=== PATIENT | female | born 1985 | race Caucasian/White ===

== ENCOUNTER 2016-02-22 11:37 | Emergency (ER) | payer MEDICAID, OTHER ==
[~2016-02-22] VITALS: Ht 157.5 cm; Wt 53.6 kg
[~2016-02-22 11:37] MED LIST: ETON1IMP I-DERMAL; PREN0.01 PO
[2016-02-22 11:41] VITALS: BP 142/88; PULSE 87; RESP 15; TEMP 98.1; O2SAT 98
--- NOTE | 2016-02-22 13:40 | PD ---
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 She describes it as heavy and with clots. Patient does report this happened one time as a teenager which resulted in a blood transfusion. Patient was seen and evaluated at her primary care provider's office Dr. Dumont on the third for the same complaint. Patient had ultrasound ordered outpatient. Urine in the office was negative on February 20, 2016. Patient reports persistent bleeding and states that she will not be able to get her ultrasound for at least 2 weeks. Denies any fever or chills. No nausea or vomiting. No bowel changes. Patient has had no difficulty urinating or urinary symptoms. Patient does have Implanon control. She has no other symptoms to report. History Social History Alcohol Use: No Tobacco Use: No Allergies-Medications (Allergen,Severity, Reaction): Coded Allergies: No Known Allergies (Unverified , 02/20/16) Reported Meds & Prescriptions Reported Meds & Active Scripts Active Nexplanon Implant (Etonogestrel Implant) 68 Mg Imp 68 Mg I-DERMAL ONCE Reported Vitamins 1 Tab PO DAILY Review of Systems Except as stated in HPI: all other systems reviewed are Neg Physical Exam Narrative GENERAL: Well-nourished female patient, in no acute distress SKIN: Warm and dry. HEAD: Atraumatic. Normocephalic. EYES: Pupils equal and round. No scleral icterus. No injection or drainage. ENT: No nasal bleeding or discharge. Mucous membranes pink and moist. NECK: Trachea midline. No JVD. CARDIOVASCULAR: Regular rate and rhythm. No murmur appreciated. RESPIRATORY: No accessory muscle use. Clear to auscultation. Breath sounds equal bilaterally. GASTROINTESTINAL: Abdomen soft, nondistended. Slight tenderness lower abdomen. No guarding or rebound tenderness. Hepatic and splenic margins not palpable. MUSCULOSKELETAL: No obvious deformities. No clubbing. No cyanosis. No edema. NEUROLOGICAL: Awake and alert. No obvious cranial nerve deficits. Motor grossly within normal limits. Normal speech. PSYCHIATRIC: Appropriate mood and affect; insight and judgment normal. Data Data Last Documented VS Vital Signs Date Time Temp Pulse Resp B/P Pulse Ox O2 Delivery O2 Flow Rate FiO2 02/22/16 11:41 98.1 87 15 142/88 98 Orders Complete Blood Count With Diff (02/22/16 13:41) Urinalysis - C+S If Indicated (02/22/16 13:41) Us Pelvis Comp W Doppler (02/22/16 ) Labs Laboratory Tests Test 02/22/16 15:15 White Blood Count 6.9 TH/MM3 Red Blood Count 4.36 MIL/MM3 Hemoglobin 13.0 GM/DL Hematocrit 38.4 % Mean Corpuscular Volume 88.1 FL Mean Corpuscular Hemoglobin 29.8 PG Mean Corpuscular Hemoglobin 33.9 % Concent Red Cell Distribution Width 13.1 % Platelet Count 185 TH/MM3 Mean Platelet Volume 9.9 FL Neutrophils (%) (Auto) 62.4 % Lymphocytes (%) (Auto) 29.1 % Monocytes (%) (Auto) 7.4 % Eosinophils (%) (Auto) 0.6 % Basophils (%) (Auto) 0.5 % Neutrophils # (Auto) 4.3 TH/MM3 Lymphocytes # (Auto) 2.0 TH/MM3 Monocytes # (Auto) 0.5 TH/MM3 Eosinophils # (Auto) 0.0 TH/MM3 Basophils # (Auto) 0.0 TH/MM3 CBC Comment DIFF FINAL Differential Comment MDM Medical Decision Making Medical Screen Exam Complete: Yes Emergency Medical Condition: Yes Medical Record Reviewed: Yes Differential Diagnosis Menorrhagia versus dysmenorrhea versus hemorrhagic cyst versus UTI versus menses Narrative Course 30 year-old female presents to emergency department for evaluation of vaginal bleeding. Patient appears without distress. Workup was initiated in triage. Once a medical bed becomes available, patient will be transferred and disposition made by the provider that pod. Diagnosis Primary Impression: Vaginal bleeding Clara Gagnon Feb 22, 2016 13:40
[2016-02-22 15:41] LABS: AUTOMATED NEUTROPHIL # 4.3 TH/MM3 (1.8-7.7); BASOPHIL % 0.5 % (0.0-2.0); EOSINOPHIL % 0.6 % (0.0-4.0); HEMATOCRIT 38.4 % (35.0-46.0); HEMO FLAGS DIFF FINAL; LYMPH % 29.1 % (9.0-44.0); MEAN CELL VOLUME 88.1 FL (80.0-100.0); MEAN CORPUSCULAR HEMOGLOBIN 29.8 PG (27.0-34.0); MEAN CORPUSCULAR HGB CONC 33.9 % (32.0-36.0); MONO % 7.4 % (0.0-8.0); NEUT % 62.4 % (16.0-70.0); PLATELET COUNT 185 TH/MM3 (150-450); RED BLOOD COUNT 4.36 MIL/MM3 (4.00-5.30); RED CELL DISTRIBUTION WIDTH 13.1 % (11.6-17.2); WHITE BLOOD COUNT 6.9 TH/MM3 (4.0-11.0)
--- NOTE | 2016-02-22 16:46 | RADRPT ---
EXAM DATE/TIME: 02/22/2016 14:35 [facility] COMPARISON: No previous studies available for comparison. INDICATIONS : Heavy vaginal bleeding. MEDICAL HISTORY : Heavy bleeding. Ovarian cysts. SURGICAL HISTORY : Blood transfusion. ENCOUNTER: Initial ACUITY: 1 month PAIN SCORE: 4/10 LOCATION: Bilateral pelvis MEASUREMENTS: UTERUS: 8.0 x 3.9 x 4.5 cm ENDOMETRIAL STRIPE: 8 mm RIGHT OVARY: 2.7 x 1.6 x 2.6 cm LEFT OVARY: 4.4 x 2.2 x 2.9 cm FINDINGS: No focal abnormalities identified in the uterus. Positive flow to both ovaries. Cystic change in both ovaries measuring up to 2.5 cm on the left and 1.2 cm on the right. Trace free fluid posterior to le ft ovary. CONCLUSION: 1. Small ovarian cysts. Positive blood flow to both ovaries. Trace free fluid. Uterus unremarkable so nographically. Kosta Woodall MD on February 22, 2016 at 16:41 Board Certified Radiologist. This report was verified electronically.
--- NOTE | 2016-02-22 16:54 | PD ---
Physical Exam Date Seen by Provider: Feb 22, 2016 Time Seen by Provider: 16:51 Narrative 30-year-old female that presents to the ED for evaluation of vaginal bleeding since January. Please refer to the previous providers note. Patient was signed out to me pending ultrasound report. Data Data Last Documented VS Vital Signs Date Time Temp Pulse Resp B/P Pulse Ox O2 Delivery O2 Flow Rate FiO2 02/22/16 11:41 98.1 87 15 142/88 98 Orders Complete Blood Count With Diff (02/22/16 13:41) Urinalysis - C+S If Indicated (02/22/16 13:41) Us Pelvis Comp W Doppler (02/22/16 ) Ed Urine Pregnancytest Poc (02/22/16 16:25) Labs Laboratory Tests Test 02/22/16 15:15 White Blood Count 6.9 TH/MM3 Red Blood Count 4.36 MIL/MM3 Hemoglobin 13.0 GM/DL Hematocrit 38.4 % Mean Corpuscular Volume 88.1 FL Mean Corpuscular Hemoglobin 29.8 PG Mean Corpuscular Hemoglobin 33.9 % Concent Red Cell Distribution Width 13.1 % Platelet Count 185 TH/MM3 Mean Platelet Volume 9.9 FL Neutrophils (%) (Auto) 62.4 % Lymphocytes (%) (Auto) 29.1 % Monocytes (%) (Auto) 7.4 % Eosinophils (%) (Auto) 0.6 % Basophils (%) (Auto) 0.5 % Neutrophils # (Auto) 4.3 TH/MM3 Lymphocytes # (Auto) 2.0 TH/MM3 Monocytes # (Auto) 0.5 TH/MM3 Eosinophils # (Auto) 0.0 TH/MM3 Basophils # (Auto) 0.0 TH/MM3 CBC Comment DIFF FINAL Differential Comment [facility] Medical Record Reviewed: Yes Supervised Visit with BETH: No Interpretation(s) CBC Diagram 02/22/16 15:15 Ultrasound showed no sign of acute disease Differential Diagnosis Vaginal bleeding versus normal exam versus dysfunctional uterine bleeding Narrative Course 30-year-old female that presents to the ED for evaluation of vaginal bleeding. Patient was previously seen by Clara HUNG who sign out patient to me pending ultrasound report and labs. Basically patient came here for evaluation of vaginal bleeding since January. Patient was seen by her doctor who did a test and different testing was essentially unremarkable. Patient was given an order to get an ultrasound outpatient. But instead came here to get evaluated for this. Ultrasound and CBC are within normal limits. Patient is in no acute distress. Patient will be given prescription for diclofenac sodium for pain. Case was discussed in my attending who agrees with plan. Patient is to follow-up with her doctor for further evaluation and possible contraceptive medication start to help with the abnormal vaginal bleeding. Patient agrees and understands. Follow-up with PCP. See ED for any worsening symptoms. Diagnosis Primary Impression: Vaginal bleeding Patient Instructions: General Instructions Additional Instruction: Follow-up with your PCP or [facility] for further evaluation and treatment. See ED for any worsening symptoms. Take medication as prescribed for pain. US did not show any abnormality, f/u with PCP. Med/Other Pt SpecificInfo: Prescription(s) given Scripts Diclofenac Sodium DR 75 Mg Tabdr75 Mg PO BID PRN (PAIN SCALE 1 TO 10) #20 TAB Prov:Yisel Leach MD 02/22/16 Disposition: 01 DISCHARGE HOME Condition: Stable Dg Tapia Feb 22, 2016 16:54
[2016-02-22] MEDS ORDERED: DICL75TA PO (16:55)
[2016-02-22 17:08] LABS: BACTERIA, URINE OCC /hpf; BLOOD, URINE LARGE (NEG); COMMENT (UR) CULTURE INDICATED; CULTURE IF INDICATED CULTURE INDICATED; GLUCOSE,URINE NEG (NEG); KETONE, URINE 80 mg/dL (NEG); MUCUS URINE MANY /lpf (OCC); NITRITE,URINE NEG (NEG); SQUAMOUS EPITHELIAL CELL URINE 19 /hpf (0-5); URINE COLOR RED (YELLW/STRAW)
[2016-07-04] MEDS ORDERED: MEDR150I IM (09:04)
[2016-07-05] MEDS ORDERED: DEPO150I IM (09:25)
== END 2016-02-22 17:39 | disposition home or self-care (01) ==
LOC: NETRI 11:37 → NEPE 17:39
DX: N93.9 Abnormal uterine and vaginal bleeding, unspecified (principal)
CPT/HCPCS: 76856; 81001; 84703; 85025; 87086; 93975

== ENCOUNTER 2016-03-09 09:20 | Emergency (ER) | payer MEDICAID ==
[~2016-03-09] VITALS: Ht 157.5 cm; Wt 50.0 kg
[~2016-03-09 09:20] MED LIST changes: +DICL75TA PO; -PREN0.01 PO
[2016-03-09 09:22] VITALS: BP 110/58; PULSE 60; RESP 16; TEMP 98.2; O2SAT 99
[2016-03-09 09:27] VITALS: BP 121/60; PULSE 70; RESP 16; O2SAT 100
[2016-03-09] MEDS ORDERED: KETOROLAC TROMETHAMINE 30 MG/ML (IVP) VIAL IV PUSH ONE (09:45)
[2016-03-09 10:00] VITALS: BP 117/68; PULSE 82; RESP 16; O2SAT 100
[2016-03-09 10:16] LABS: AUTOMATED NEUTROPHIL # 3.2 TH/MM3 (1.8-7.7); BASOPHIL % 0.4 % (0.0-2.0); EOSINOPHIL % 0.6 % (0.0-4.0); HEMATOCRIT 42.2 % (35.0-46.0); HEMO FLAGS DIFF FINAL; LYMPH % 27.4 % (9.0-44.0); LYMPHOCYTE # 1.3 TH/MM3 (1.0-4.8); MEAN CELL VOLUME 88.7 FL (80.0-100.0); MEAN CORPUSCULAR HEMOGLOBIN 28.6 PG (27.0-34.0); MEAN CORPUSCULAR HGB CONC 32.2 % (32.0-36.0); MONO % 6.9 % (0.0-8.0); NEUT % 64.7 % (16.0-70.0); PLATELET COUNT 191 TH/MM3 (150-450); RED BLOOD COUNT 4.75 MIL/MM3 (4.00-5.30); RED CELL DISTRIBUTION WIDTH 12.9 % (11.6-17.2); WHITE BLOOD COUNT 4.9 TH/MM3 (4.0-11.0)
--- NOTE | 2016-03-09 10:21 | RADRPT ---
EXAM DATE/TIME: 03/09/2016 10:01 [facility] COMPARISON: No previous studies available for comparison. INDICATIONS : Chest pain for 24 hours MEDICAL HISTORY : None. SURGICAL HISTORY : None. ENCOUNTER: Initial ACUITY: 1 day PAIN SCORE: 10/10 LOCATION: Left chest FINDINGS: PA and lateral views of the chest demonstrate a normal-sized cardiac silhouette. There is no effusion , consolidation, or pneumothorax. The bones and soft tissues demonstrate no acute abnormality. CONCLUSION: No acute cardiopulmonary abnormality is identified. Delgado Guzman MD on March 09, 2016 at 10:19 Board Certified Radiologist. This report was verified electronically.
[2016-03-09 10:28] LABS: ALT (GPT) 26 U/L (10-53); ANION GAP 6 MEQ/L (5-15); APTT (PATIENT) 26.8 SEC (24.3-30.1); AST (GOT) 16 U/L (15-37); BICARBONATE 26.7 MEQ/L (21.0-32.0); BLOOD UREA NITROGEN 11 MG/DL (7-18); CHLORIDE 107 MEQ/L (98-107); GLOMERULAR FILTRATION RATE 100 ML/MIN (>89); PROTHROMBIN TIME - PATIENT 11.5 SEC (9.8-11.6); SODIUM (NA) 140 MEQ/L (136-145)
[2016-03-09 10:32] LABS: ALKALINE PHOSPHATASE 82 U/L (45-117); TOTAL BILIRUBIN ADULT 1.3 MG/DL (0.2-1.0)
--- NOTE | 2016-03-09 10:33 | PD ---
HPI Chief Complaint: Chest Pain Time Seen by Provider: 09:31 Travel History International Travel<30 days: No Contact w/Intl Traveler<30days: No Traveled to known affect area: No History of Present Illness HPI Patient is a 30-year-old female who comes in complaining of left-sided chest pain. She says this has been going on all week, she saw her doctor who ordered an echo, which she has not had done yet. She says she came in because last night and this morning the pain has been worse and lasting longer. She localizes the pain to under her left breast. She says it feels like a squeezing pain. She says that taking deep breaths makes the pain worse. She denies any trouble breathing. She denies any cough or fevers. She denies any leg pain or swelling. She says her father had a heart attack in his 30s requiring stenting. She has 4 siblings who have no cardiac issues. She denies any stimulant or drug use. [facility] Past Medical History Anemia: Yes Reproductive: Yes (OVARIAN CYST) Tetanus Vaccination: Unknown Influenza Vaccination: No ?: Not LMP: 03/03/16 Past Surgical History Surgical History: No Previous Surgery Social History Alcohol Use: No Tobacco Use: No Substance Use: No Allergies-Medications (Allergen,Severity, Reaction): Coded Allergies: No Known Allergies (Unverified , 03/09/16) Reported Meds & Prescriptions Reported Meds & Active Scripts Active No Active Prescriptions or Reported Medications Review of Systems Except as stated in HPI: all other systems reviewed are Neg General / Constitutional: No: Fever, Chills HENT: No: Headaches, Lightheadedness Cardiovascular: Positive: Chest Pain or Discomfort Respiratory: No: Cough, Shortness of Breath Gastrointestinal: No: Nausea, Vomiting Genitourinary: No: Dysuria Musculoskeletal: No: Myalgias Skin: No Rash, No Itching Neurologic: No: Weakness, Dizziness Physical Exam Narrative GENERAL: Awake and alert in no acute distress. SKIN: Warm and dry. HEAD: Atraumatic. Normocephalic. EYES: Pupils equal and round. No scleral icterus. ENT: Mucous membranes pink and moist. NECK: Trachea midline. No JVD. CARDIOVASCULAR: Regular rate and rhythm. No murmur appreciated. Left side of the chest wall is tender to palpation. RESPIRATORY: No accessory muscle use. Clear to auscultation. Breath sounds equal bilaterally. GASTROINTESTINAL: Abdomen soft, non-tender, nondistended. MUSCULOSKELETAL: No obvious deformities. No clubbing. No cyanosis. No edema. NEUROLOGICAL: Awake and alert. No obvious cranial nerve deficits. Motor grossly within normal limits. Normal speech. PSYCHIATRIC: Appropriate mood and affect; insight and judgment normal. Data Data Last Documented VS Vital Signs Date Time Temp Pulse Resp B/P Pulse Ox O2 Delivery O2 Flow Rate FiO2 03/09/16 11:01 16 03/09/16 11:00 73 106/58 98 Room Air 03/09/16 09:22 98.2 Orders Electrocardiogram (03/09/16 ) Complete Blood Count With Diff (03/09/16 09:39) Comprehensive Metabolic Panel (03/09/16 09:39) D-Dimer (03/09/16 09:39) Prothrombin Time / Inr (Pt) (03/09/16 09:39) Act Partial Throm Time (Ptt) (03/09/16 09:39) Troponin I (03/09/16 09:39) Chest, Pa & Lat (03/09/16 09:39) Ed Urine Pregnancytest Poc (03/09/16 09:39) Ketorolac Inj (Toradol Inj) (03/09/16 09:45) Labs Laboratory Tests Test 03/09/16 10:00 White Blood Count 4.9 TH/MM3 Red Blood Count 4.75 MIL/MM3 Hemoglobin 13.6 GM/DL Hematocrit 42.2 % Mean Corpuscular Volume 88.7 FL Mean Corpuscular Hemoglobin 28.6 PG Mean Corpuscular Hemoglobin 32.2 % Concent Red Cell Distribution Width 12.9 % Platelet Count 191 TH/MM3 Mean Platelet Volume 10.4 FL Neutrophils (%) (Auto) 64.7 % Lymphocytes (%) (Auto) 27.4 % Monocytes (%) (Auto) 6.9 % Eosinophils (%) (Auto) 0.6 % Basophils (%) (Auto) 0.4 % Neutrophils # (Auto) 3.2 TH/MM3 Lymphocytes # (Auto) 1.3 TH/MM3 Monocytes # (Auto) 0.3 TH/MM3 Eosinophils # (Auto) 0.0 TH/MM3 Basophils # (Auto) 0.0 TH/MM3 CBC Comment DIFF FINAL Differential Comment Prothrombin Time 11.5 SEC Prothromb Time International 1.0 RATIO Ratio Activated Partial 26.8 SEC Thromboplast Time D-Dimer Quantitative (PE/DVT) 0.23 MG/L FEU Sodium Level 140 MEQ/L Potassium Level 4.0 MEQ/L Chloride Level 107 MEQ/L Carbon Dioxide Level 26.7 MEQ/L Anion Gap 6 MEQ/L Blood Urea Nitrogen 11 MG/DL Creatinine 0.70 MG/DL Estimat Glomerular Filtration 100 ML/MIN Rate Random Glucose 72 MG/DL Calcium Level 8.6 MG/DL Total Bilirubin 1.3 MG/DL Aspartate Amino Transf 16 U/L (AST/SGOT) Alanine Aminotransferase 26 U/L (ALT/SGPT) Alkaline Phosphatase 82 U/L Troponin I LESS THAN 0.02 NG/ML Total Protein 7.2 GM/DL Albumin 4.0 GM/DL [facility] Medical Decision Making Medical Screen Exam Complete: Yes Emergency Medical Condition: Yes Medical Record Reviewed: Yes Interpretation(s) ECG shows normal sinus rhythm at 61, no ST elevation or depression, normal intervals. Differential Diagnosis Costochondritis versus bronchitis versus pneumonia versus pneumothorax versus ACS (unlikely) Narrative Course Patient is a 30-year-old female comes in complaining of left-sided chest pain. This pain is been going on for the past week. Exam shows chest wall tenderness on palpation. IV established, labs sent. Patient connected to telemetry monitor. Shows no signs of ischemia, normal intervals. Labs including troponin as well as d-dimer are negative. Patient given Toradol for pain. She reports improvement of her symptoms. Patient reassured that at her age it is very unlikely she is having a cardiac event. I advised the patient to follow-up with her doctor and have testing done that has been ordered for her. Advised to return to the emergency department as needed for any worsening symptoms. Patient is comfortable with discharge at this time. Diagnosis Primary Impression: Costochondritis Patient Instructions: Costochondritis (ED), General Instructions Additional Instructions: Follow up with your doctor. Take Ibuprofen as needed for pain. Return to the Emergency department for any worsening symptoms. Scripts No Active Prescriptions or Reported Meds Disposition: 01 DISCHARGE HOME Condition: Stable Anjana Hodges MD Mar 09, 2016 10:33
[2016-03-09 11:00] VITALS: BP 106/58; PULSE 73; RESP 16; O2SAT 98
[2016-03-09 11:01] VITALS: RESP 16
--- NOTE | 2016-03-11 21:57 | EKG ---
Date Performed: 03/09/2016 Time Performed: 09:29:23 PTAGE: 30 years EKG: Sinus rhythm NORMAL ECG NO PREVIOUS TRACING DOCTOR: Juan De La Cruz Interpretating Date/Time 03/11/2016 21:54:58
[2016-07-04] MEDS ORDERED: MEDR150I IM (09:04)
[2016-07-05] MEDS ORDERED: DEPO150I IM (09:25)
== END 2016-03-09 11:31 | disposition home or self-care (01) ==
LOC: NEPA 09:20
DX: M94.0 Chondrocostal junction syndrome [Tietze] (principal); D64.9 Anemia, unspecified
CPT/HCPCS: 71020; 80053; 84484; 84703; 85025; 85379; 85610; 85730; 93005; 96374; 99285; J1885

== ENCOUNTER 2017-05-10 17:24 | Emergency (ER) | payer MEDICAID ==
[~2017-05-10] VITALS: Ht 157.5 cm; Wt 58.0 kg
[~2017-05-10 17:24] MED LIST changes: -DICL75TA PO; -ETON1IMP I-DERMAL; +MEDR150I IM; +METR1TAB76 PO; +TRIA.1%T TOPICAL
[2017-05-10 18:00] VITALS: BP 118/63; PULSE 90; RESP 17; TEMP 98.7; O2SAT 100
--- NOTE | 2017-05-10 22:05 | PD ---
HPI Chief Complaint: Back/ Neck Pain or Injury Time Seen by Provider: 21:34 Travel History International Travel<30 days: No Contact w/Intl Traveler<30days: No Traveled to known affect area: No History of Present Illness HPI The patient was seen and examined in the presence of the nurse. This patient complains of low back pain. Started yesterday around noon. Duration 1.5 days. Severity is moderate. Worse with movement of her torso or lifting of her legs. 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 No direct trauma or injury. No fever or vaginal discharge or bleeding or urinary complaints. No sciatic radiation. No alleviating factors. PFSH Past Medical History Anemia: Yes Reproductive: Yes (OVARIAN CYST) ?: Unknown Social History Alcohol Use: No Tobacco Use: No Substance Use: No Allergies-Medications (Allergen,Severity, Reaction): Coded Allergies: No Known Allergies (Unverified Adverse Reaction, Unknown, 05/10/17) Reported Meds & Prescriptions Reported Meds & Active Scripts Active Metronidazole 500 Mg Tab 500 Mg PO BID Triamcinolone Topical (Triamcinolone Acetonide) 0.1% Cream 1 Applic TOPICAL ONCE Medroxyprogesterone Inj 150 Mg/Ml Inj 150 Mg IM Q90D Review of Systems General / Constitutional: No: Fever Eyes: No: Visual changes HENT: No: Headaches Cardiovascular: No: Chest Pain or Discomfort Respiratory: No: Shortness of Breath Gastrointestinal: No: Abdominal Pain Genitourinary: No: Dysuria Musculoskeletal: Positive: Pain Skin: No Rash Neurologic: No: Weakness Psychiatric: No: Depression Endocrine: No: Polydipsia Hematologic/Lymphatic: No: Easy Bruising Physical Exam Narrative GENERAL: Well-nourished, well-developed patient in no apparent distress. SKIN: Focused skin assessment reveals no rash and nodules. Skin is Warm and dry. HEAD: Atraumatic. Normocephalic. EYES: Pupils equal and round. No scleral icterus. No injection or drainage. ENT: No nasal bleeding or discharge. Mucous membranes pink and moist. NECK: Trachea midline. No JVD. CARDIOVASCULAR: Regular rate and rhythm. No murmur appreciated. RESPIRATORY: No accessory muscle use. Clear to auscultation. Breath sounds equal bilaterally. GASTROINTESTINAL: Abdomen soft, non-tender, nondistended. Hepatic and splenic margins not palpable. MUSCULOSKELETAL: No obvious deformities. No clubbing. No cyanosis. No edema. Lower back is diffusely tender without any visible bruising or swelling. NEUROLOGICAL: Awake and alert. No obvious cranial nerve deficits. Motor grossly within normal limits. Normal speech. PSYCHIATRIC: Appropriate mood and affect; insight and judgment normal. Data Data Last Documented VS Vital Signs Date Time Temp Pulse Resp B/P (MAP) Pulse Ox O2 Delivery O2 Flow Rate FiO2 05/10/17 18:00 98.7 90 17 118/63 (81) 100 Orders Orders Ed Urine Pregnancytest Poc (05/10/17 22:02) Urinalysis - C+S If Indicated (05/10/17 22:02) Oxycodone-Acetamin 5-325 Mg (Percocet (05/10/17 23:00) Labs Laboratory Tests Test 05/10/17 20:17 Urine Color YELLOW Urine Turbidity HAZY Urine pH 5.5 Urine Specific [place] 1.028 Urine Protein TRACE mg/dL Urine Glucose (UA) NEG mg/dL Urine Ketones NEG mg/dL Urine Occult Blood NEG Urine Nitrite NEG Urine Bilirubin NEG Urine Urobilinogen LESS THAN 2.0 MG/DL Urine Leukocyte Esterase NEG Urine RBC LESS THAN 1 /hpf Urine WBC 4 /hpf Urine Squamous Epithelial Cells 14 /hpf Urine Bacteria RARE /hpf Urine Mucus FEW /lpf Microscopic Urinalysis Comment CULT NOT INDICATED MDM Medical Decision Making Medical Screen Exam Complete: Yes Emergency Medical Condition: Yes Medical Record Reviewed: Yes Differential Diagnosis Lumbar strain, disc herniation, sciatica Narrative Course I have reviewed the patient's electronic medical record. Urine is negative Urinalysis is clean There are no objective findings on exam. She is neurologically intact There are no red flags to suggest emergent imaging is indicated. Supportive care discussed Upon recheck she is sleeping Diagnosis Primary Impression: Musculoskeletal back pain Additional Instructions: The patient was advised to follow up with their physician and return if they worsen. Med/Other Pt SpecificInfo: Other Disposition: 01 DISCHARGE HOME Condition: Stable Umesh Wheeler MD May 10, 2017 22:05
[2017-05-10] MEDS ORDERED: oxyCODONE/ACETAMINOPHEN 5 MG/325 MG TAB PO ONE (23:00)
[2017-05-10 23:22] LABS: BACTERIA, URINE RARE /hpf; BILIRUBIN, URINE NEG (NEG); BLOOD, URINE NEG (NEG); GLUCOSE,URINE NEG (NEG); KETONE, URINE NEG (NEG); MUCUS URINE FEW /lpf (OCC); NITRITE,URINE NEG (NEG); PH, URINE 5.5 (5.0-8.5); SQUAMOUS EPITHELIAL CELL URINE 14 /hpf (0-5); URINE COLOR YELLOW (YELLW/STRAW); URINE LEUKOCYTE ESTERASE NEG (NEG)
== END 2017-05-11 00:05 | disposition home or self-care (01) ==
LOC: NEPD 17:24
DX: M54.5 Low back pain (principal); D64.9 Anemia, unspecified
CPT/HCPCS: 81001; 84703; 99283